=== PATIENT | male | born 1945 | race Caucasian/White ===

== ENCOUNTER 2017-03-15 01:50 | Inpatient (IN) | payer OTHER, MEDICARE ==
[~2017-03-15] VITALS: Ht 175.3 cm; Wt 117.9 kg
[~2017-03-15 01:50] MED LIST: ALLOPURINOL300 M1 PO; ASPIRIN EC81 M1 PO; FLOMAX0.4 M1 PO; JANUMET XR 1001 EACH PO; LOTREL 5-20 MG1 EACH PO; PLAVIX75 M1 PO
--- NOTE | 2017-03-15 07:25 | Admission Core Measures ---
Admission Meds I reviewed the following Meds: Current Medications Sig/Nicko Start time Last Medication Dose Stop Time Status Admin Acetaminophen 975 MG ONCE 03/15 0000 NR (Tylenol) 03/15 2359 Cefazolin Sodium 2,000 MG ONCE 03/15 0000 NR (Kefzol-Ancef Inj) 03/15 2359 Oxycodone HCl 10 MG ONCE 03/15 0000 NR (Roxicodone) 03/15 2359 Acute Coronary Syndrome Inclusion Criteria ACS Diagnosis No Inpatient Core Measures LDL Reminder: If No, please order W/I first 24hr of stay Congestive Heart Failure Inclusion Criteria CHF Diagnosis No Cerebrovascular accident Inclusion Criteria CVA/TIA Diagnosis No Inpatient Core Measures Bedside Swallow Eval Reminder: If BSE failed, place ST order Antithrombotic Reminder: Order Antithrombotic Medication by end of day 2 Antithrombotic Reminder: Document Reason Antithrombotic Not ordered by end of day 2 AFIB/Flutter Reminder: If Present, add to problem list AFIB/Flutter Reminder: Order Anticoag Medication for pts with AFIB/Flutter Atherosclerosis Reminder: If Present, add to problem list LDL Reminder: If No, please order W/I first 24hr of stay PT Order Reminder: If No, please order Venous thromboembolism Inpatient Core Measures VTE Risk Factors: [facility] prophylaxis d/t No contraindications No VTE Pharm Prophylaxis d/t No contraindications Inclusion Criteria - Per Current guidelines, there needs to be overlap - treatment for the first 5 days of Warfarin therapy. - Parenteral Anticoagulation (IV or SC) needs to be - given along with Warfarin therapy. VTE Diagnosis No VTE Type NONE VTE Confirmed by (Test) NONE Problem List As ranked by this Provider includes Assessment & Plan 1. Primary osteoarthritis of right hip HOME MEDS Home Med List Allopurinol 300 MG TABLET 1 TAB PO DAILY gout (Reported) Amlodipine Besylate/Benazepril (Lotrel 5-20 MG Capsule) 5 MG-20 MG CAPSULE 1 CAP PO DAILY htn (Reported) Aspirin (Ecotrin*) 81 MG TABLET.DR 1 TAB PO DAILY PROPHO (Reported) Clopidogrel Bisulfate (Plavix) 75 MG TABLET 1 TAB PO DAILY HX CVA (Reported) Sitagliptin Phos/Metformin HCl (Janumet XR 100-1,000 MG Tablet) 100 MG-1,000 MG TBMP.24HR 1 TAB PO DAILY DM II (Reported) Tamsulosin HCl (Flomax) 0.4 MG CAP.ER.24H 1 CAP PO DAILY bph (Reported)
[2017-03-15] MEDS ORDERED: MIRALAX17 G1 PO (11:09)
[2017-03-15] MEDS ORDERED: COLACE100 M1 PO (11:09)
[2017-03-15] MEDS ORDERED: MS CONTIN30 M1 PO (11:09)
[2017-03-15] MEDS ORDERED: DILAUDID2 M1 PO (11:09)
[2017-03-15] MEDS ORDERED: ASPIRIN EC325 M2 PO (11:09)
[2017-03-15] MEDS ORDERED: PROTONIX20 M1 PO (11:09)
--- NOTE | 2017-03-15 11:13 | Patient Discharge Instructions ---
Discharge Instructions General Discharge Information You were seen/treated for: RIGHT hip pain You had these procedures: Total hip replacement, RIGHT Watch for these problems: Increasing pain despite the use of pain medication Increasing redness, warmth or swelling Drainage of any type from incision Inability to bear weight on operative leg Persistent nausea and vomiting Fever greater than 101.5 degrees No bath, but you may shower: Yes Other wound care: Please keep wound clean and dry. No ointments or lotions of any type on or near incision at any time. No exceptions. Your dressing will be changed by your nurse on the second day after your surgery. Daily dry dressing changes are recommended each day thereafter. Do not soak your wound in a bath at any time until otherwise indicated by Dr. Francisco. You may shower, please dry wound immediately after shower with a clean towel. Special Instructions: DO NOT TAKE PLAVIX FOR 2 WEEKS DUE TO RISK OF BLEEDING. You may resume your normal dose of Plavix 2 weeks from surgery. Aspirin: You are taking this medication to help prevent blood clot formation. Please take with food to protect your stomach lining. Please take Aspirin 325mg twice daily, INSTEAD OF YOUR HOME DOSE OF 81mg daily. Protonix: Take this daily to protect your stomach lining while taking aspirin. Constipation: Pain medication can cause constipation. Dr. Francisco has recommended that you take Colace and miralax each day. You may discontinue this medication if you develop loose stool or diarrhea. If you wish to continue this medication, it is available over the counter. If you are unable to move your bowels after several days, if you are unable to pass gas and are developing bloating, nausea, or vomiting as a result, please contact your doctor. Diet Continue normal diet: Yes Recommended Diet: Diabetic Activity Activity Limited to: Weight bear as tolerated Other activity limits: use assistive devices as needed Acute Coronary Syndrome Inclusion Criteria At DC or during hospital stay patient has or had the following: ACS DIAGNOSIS No Discharge Core Measures Meds if any: Prescribed or Continued at Discharge Meds if any: NOT Prescribed or Continued at Discharge Congestive Heart Failure Inclusion Criteria At DC or during hospital stay patient has or had the following: CHF DIAGNOSIS No Discharge Core Measures Meds if any: Prescribed or Continued at Discharge Meds if any: NOT Prescribed or Continued at Discharge Cerebrovascular accident Inclusion Criteria At DC or during hospital stay patient has or had the following: CVA/TIA Diagnosis No Discharge Core Measures Meds if any: Prescribed or Continued at Discharge Meds if any: NOT Prescribed or Continued at Discharge Venous thromboembolism Inclusion Criteria VTE Diagnosis No VTE Type NONE VTE Confirmed by (Test) NONE Discharge Core Measures - Per Current guidelines, there needs to be overlap - treatment for the first 5 days of Warfarin therapy. - If discharged on Warfarin prior to 5 days of - overlap therapy, the patient will need to be - assessed for post discharge needs including - *Post discharge parental anticoagulation - *Warfarin and/or parental anticoagulation education - *Follow up date to check INR post discharge At least 5 days overlap therapy as Inpatient No Meds if any: Prescribed or Continued at Discharge Note: Overlap Therapy is Warfarin and Anticoagulant Meds if any: NOT Prescribed or Continued at Discharge
--- NOTE | 2017-03-15 11:17 | Surg Short-stay <48hrs Dis Sum ---
See Addendum Visit Information Visit Dates Admission Date: 03/15/17 Discharge Date: 03/20/17 Surgical Short Stay DC Summary Admission Diagnosis: Primary unilateral osteoarthritis, right hip Final Diagnosis: Same, s/p total hip replacement, right Procedure(s): total hip replacement, right Summary/Significant Findings: Patient was admitted to the hospital for an elective total joint replacement. The procedure was tolerated well and patient was transferred to a general surgical floor. Diet was advanced and tolerated, and the patient voided spontaneously. The patient was evaluated and treated by physical therapy. His postoperative course was somewhat delayed due to reports of significant pain. MS Contin was added to his regimen, which helped. 4 mg of Dilaudid seemed to work for intermittent use. He and his were uncomfortable with discharge home as they felt he would not be safe there. The patient required a few more days for pain control and continued PT/mobility. At the time of hospital discharge, the vital signs were stable, neurovascular status was intact, and pain was controlled with the use of oral pain medications. He should remain off of his Plavix for 2 weeks postop. Condition at Discharge: stable Discharge Disposition: home health services Discharge instructions provided to patient/family: Yes Post discharge follow-up plan: Follow up with Dr. Francisco in 6 weeks from date of surgery. Please call his office to arrange and/or confirm this appointment.
--- NOTE | 2017-03-15 14:30 | RADIOLOGY REPORT ---
EXAMINATION: XR HIP, RIGHT CLINICAL INFORMATION: Status post total hip arthroplasty. COMPARISON: None TECHNIQUE: Two views of the right hip. Crosstable lateral view is somewhat limited due to technique and patient body habitus. FINDINGS: Immediate postoperative changes consistent with total hip arthroplasty include metallic acetabular, femoral head, and proximal femoral components without evidence of immediate consultation. IMPRESSION: Postoperative changes.
--- NOTE | 2017-03-15 16:58 | PN- Student ---
GUILLERMINA CORNEJO 03/15/17 1646: Subjective Subjective: POC: Patient is sitting up in chair. Reports 6/10 pain in right hip currently. Patient reports some residual tingling in right leg. Just given IV morphine. No other complaints. Denies n/v, SOB, chest pain, headaches/dizziness. Objective Objective: Vital signs stable General: awake, alert, oriented, NAD Lungs: CTAB, no wheeze/rhonchi/rales Heart: S1 S2, RRR Abdomen: soft, obese, non-distended, normoactive bowel sounds Extremities: ALPS in place, moves all extremities, gross motor/sensory function in tact, no peripheral edema, distal pulses 2+ Right hip: incision site dressing lightly stained with sanguanous fluid, but dry and intact. Hemovac in place with about 300 cc sanguanous drainage Assessment/Plan Assessment: 71 y/o male POD #0 right hemiarthroplasty for osteoarthritis of hip. Progressing as expected with 6/10 post-op pain that is well controlled with morphine IV. Plan: Diet: regular aat Pain: continue current pain management Abx: ancef x2 for prophylaxis DVT ppx: ALPS, aspirin 325 bid GI ppx Sliding scale accuchecks ac tid PT: OOB and ambulate with physical therapy Due to void post-op by midnight Monitor drain output - consider D/C tomorrow am D/C planning - pending clearance by PT w/d with attending FILOMENA PEREZ 03/15/17 5431: Assessment/Plan Plan: agree with above PA-S note likely d/c hemovac in the morning and stop iv fluids will d/w
--- NOTE | 2017-03-15 17:46 | Operative Report ---
Operative/Inv Procedure Report Surgery Date: 03/15/17 Name of Procedure: Right total hip replacement Pre-Operative Diagnosis: Primary right hip DJD Post-Operative Diagnosis: Same Estimated Blood Loss: 500 Surgeon/Flap Maker: AMITA BENÍTEZ,FRANCIA Engel Anesthesia: block Operative/Procedure Note Note: Description of Procedure: The patient was taken to the operating room and positively identified. After induction of spinal anesthesia and administration of appropriate pre-operative antibiotics, the patient was positioned supine on the operating room table and all bony prominences were well padded. After performing a surgical timeout, the right lower extremity was prepped and draped in the usual sterile fashion. A direct anterior approach was made to the right hip. The incision was carried sharply through superficial soft tissues to the level of the fascia. Meticulous hemostasis was maintained with Bovie electocautery. The fascia over the tensor fascia berto muscle was opened sharply and the interval between the TFL and the sartorius was entered bluntly taking care to stay lateral to the lateral femoral cutaneous nerve. Retractors were placed around the femoral neck and the pericapsular fat was identified. The ascending branches of the lateral femoral circumflex vessels were identified and carefully coagulated. The pericapsular fat and anterior capsule were then resected. A napkin ring osteotomy was performed and the femoral head was removed without difficulty. Attention was then turned to the acetabulum. After appropriate placement of retractors, the acetabulum was exposed. Soft tissue was cleaned from the acetabular margin and notch. Overhanging osteophytes were removed and the teardrop was exposed. The acetabulum was then sequentially reamed to accept a 60 mm Jose Tritanium hemispherical solid back shell. This was impacted into place in the appropriate position and fitted with a 36 mm Trident X3 zero degree polyethylene insert. Attention was then turned to the femur. After performing the appropriate ligament releases, the proximal femur was exposed. It was then sequentially broached to accept a size 11 Clifton secure fit max 127 stem. This was trialed for leg length and stability. The trial component was removed and the final component was impacted into place. The trunnion was carefully cleaned and fit with a 36 mm, -5 Biolox delta ceramic femoral head. The hip was reduced and put through a full range of motion and found to be stable. The articular space was then irrigated with sterile saline. The periarticular soft tissues were infilitrated with Marcaine. The fascial layer was closed with interrupted #1 vicryl suture and the skin was re-approximated with interrupted 2 -0 vicryl. The skin was closed with a running 3-0 V-Lock suture. Steri-strips and a sterile dressing were applied. The patient was awakened and taken to the recovery room in satisfactory condition.
[2017-03-15 19:30] VITALS: BP 138/82
[2017-03-15 22:23] VITALS: BP 150/80
--- NOTE | 2017-03-16 00:44 | NUR ---
PATIENT ALERT AND ORIENTED X3, ARRIVED ON FLOOR FROM PACU. ASSESSMENT COMPLETE. RIGHT HIP DRESSING CLEAN AND INTACT. HEMOVAC DRAINING BLOODY DRAINAGE. PATIENT C/O PAIN TO RLE. PAIN MEDICTION GIVEN ORDERED. FAMILY AT BEDSIDE. PT ORIENTED TO ROOM, STAFF AND CALL LIGHT SYSTEM. WILL CONTINUE TO MONITOR.
[2017-03-16 06:00] VITALS: BP 146/84
--- NOTE | 2017-03-16 07:23 | PN- Student ---
See Addendum GUILLERMINA CORNEJO 03/16/17 0709: Subjective Subjective: Patient is sitting semi-erect in bed this am, comfortable with no current complaints. Is OOB to chair and standing to void since yesterday. Reports 5-6/10 pain in right hip when he gets up to use the bathroom, but resolves when he is laying down. Doesn't want to take pain medication unless planning to get out of bed. Tolerating regular diet well. Denies chest/abdominal pain, SOB, n/v, headaches and dizziness. Is requesting to stay in hospital another day. is concerned she will not be able to help him in and out of the house and up the stairs. Objective Objective: Vital Signs Result Date Time Pulse Ox 95 03/16 0600 B/P 146/84 03/16 0600 O2 Delivery Room Air 03/16 06 Temp 98.4 03/16 0600 Pulse 62 03/16 0600 Resp 20 03/16 0600 Intake & Output 03/16 0000 03/15 1600 03/15 0800 Intake Total 830 Output Total 1500 Balance -670 Intake, IV 350 Intake, Oral 480 Output, 700 Drainage Output, Urine 800 Patient 260 lb Weight General: awake, alert, oriented, NAD Lungs: CTAB, no wheeze/rales/rhonchi, good air movement bilaterally Heart: S1 S2, RRR, no MRG Abdomen: soft, obese, normoactive bowel sounds, non-tender Extremities: warm, gross motor/sensory function in tact, no peripheral edema, no calf tenderness bilaterally, distal pulses 2+ Right hip: dressing lightly stained with blood, dry and intact, hemovac in place currently with about 30cc serosanguanous drainage - accumulated 225cc overnight, some sedrick- incisional tenderness, no edema, erythema Assessment/Plan Assessment: 71 y/o male POD #1 right total hip replacement for osteoarthritis with PMH significant for DM, gout, HTN, CVA and BPH. Progressing as expected with pain on movement but none otherwise. Plan: Diet: continue regular diet Pain: continue current pain management regimen DVT ppx and GI ppx OOB and ambulate with PT today D/C hemovac AC TID PT to clear for discharge to home - w/d with attending about staying until Monday ONELIA CARDENAS 03/16/17 0833: Assessment/Plan Plan: Diabetic diet Bowel regimen: Miralax, Colace BID DVT prophylaxis/Anticoagulation: Aspirin 325mg BID Possible dc hemovac, will follow up with attending Continue home medications: Omeprazole, lisinopril, tamsulosin, amlodipine PT consultation pending, likely discharge home monday
[2017-03-16 09:05] LABS: ABSOLUTE BASOPHIL COUNT 0 /CUMM (0.0-0.2); ABSOLUTE EOSINOPHIL COUNT 0 /CUMM (0.0-0.7); ABSOLUTE GRANULOCYTE CT 8.5 /CUMM (1.4-6.5); ABSOLUTE LYMPH COUNT 2.4 /CUMM (1.2-3.4); ABSOLUTE MONOCYTE COUNT 0.9 /CUMM (0.10-0.60); BASOPHIL % 0.1 % (0.0-2.0); EOSINOPHIL % 0.1 % (0-5); GRANULOCYTE % 71.7 % (42.2-75.2); HEMATOCRIT 36.8 % (42-52); MEAN CORPUSCULAR HGB 30.4 PG (27.0-31.0); MEAN CORPUSCULAR HGB CONC 33.6 G/DL (33.0-37.0); MEAN CORPUSCULAR VOLUME 90.5 FL (80.0-94.0); MEAN PLATELET VOLUME 9.8 FL (7.4-10.4); PLATELET COUNT 169 /CUMM (130-400); RBC DISTRIBUTION WIDTH 14.7 % (11.5-14.5); RED BLOOD CELL CT 4.07 /CUMM (4.70-6.10); WHITE BLOOD CELL COUNT 11.8 /CUMM (4.8-10.8)
[2017-03-16 11:54] VITALS: BP 140/80
[2017-03-16 14:17] VITALS: BP 126/68
--- NOTE | 2017-03-16 14:48 | NUR ---
PATIENT WITH PAIN IN THE AM, MULTIPLE PAIN MEDICATIONS GIVEN, ICE APPLIED, PAIN FINALLY RELIEVED, CURRENTLY COMFORTABLE, PT AWARE OF WHEN PAIN MEDICATIONS ARE DUE. SAFETY MAINTAINED
[2017-03-16 18:10] VITALS: BP 130/60
[2017-03-16 22:38] VITALS: BP 132/60
--- NOTE | 2017-03-16 22:59 | NUR ---
LATE ENTRY: PT STATED FEELING OF "PINS AND NEEDLES" TO BILATERAL FEET, THAT "JUST STARTED RIGHT NOW" -APPROX 1800. STATED THAT HES HAD THIS IN THE PAST BEFORE SURGERY WELL. +PEDAL PULSES, + POST TIB PULSES, NO INCREASE IN EDEMA. CALL TO SURGICAL PA TO MAKE AWARE, WHO STATED SHE WILL BE UP TO SEE PT BUT NO NEW ORDERS AT THIS TIME.
--- NOTE | 2017-03-16 23:01 | NUR ---
SHIFT NOTE: PT A/O X 3 ON RA, LUNGS CLEAR, IST AT BEDSIDE, NOT PASSING FLATUS YET, +BS X 4, TOLERATING FOOD AND PO FLUIDS WELL, NO NAUSEA. ABD SLIGHTLY DISTENDED, SOFT. A X 1 WITH RW. DRESSING TO RT HIP CD+I. MEDICATED WITH PAIN MEDS PRN PER EMAR. PT STATING "PHYSICAL THERAPY SHOULD HAVE BEEN WORKING WITH ME MORE, THEY SHOULD HAVE DONE STAIRS WITH ME TODAY. HE SAID HE WAS GOING TO COME BACK THIS AFTERNOON AND I HAVENT SEEN HIM". UPSET REGARDING THIS WELL. WILL PASS ALONG IN NURSE REPORT. PT STATES THAT HE HAS ABOUT 15 STAIRS AT HOME AND IS WORRIED ABOUT HAVING TO DO THE STAIRS AT HOME. EMOTIONAL SUPPORT PROVIDED.
[2017-03-17 06:51] VITALS: BP 122/74
--- NOTE | 2017-03-17 09:04 | PN- Orthopedic ---
Subjective Subjective: Moderate pain this morning, pain medication is helping. He states he is having a difficult time ambulating to the bathroom and does not feel comfortable being discharged home today. He denies any fever or flulike illness. He has a lot of stiffness and the like and right hip. Denies spasm Objective Vital Signs and I&Os Vital Signs Date Time Temp Pulse Resp B/P B/P Pulse O2 O2 Flow FiO2 Mean Ox Delivery Rate 03/17 0651 99.6 92 20 122/74 93 Room Air 03/16 2238 98.2 84 20 132/60 95 Room Air 03/16 1810 98.8 90 20 130/60 95 Room Air 03/16 1417 98.2 76 20 126/68 94 03/16 1316 Room Air Room Air 03/16 1154 98.7 80 20 140/80 96 03/16 1024 82 150/80 03/16 1023 82 150/80 03/16 1023 82 150/80 Intake & Output 03/17 1600 03/17 0800 03/17 0000 03/16 1600 03/16 0800 03/16 0000 Intake Total 450 830 Output Total 448 281 7751 Balance -150 -975 -670 Intake, IV 350 Intake, Oral 450 480 Output, 225 700 Drainage Output, Urine 600 750 800 Patient 260 lb Weight Physical Exam: Well-developed well-nourished no apparent distress. HEENT: Atraumatic, extraocular motion intact Neck: Supple, no lymphadenopathy Respiratory: No respiratory distress Extremities: No edema RIGHT lower extremity hip dressing in place, Dressing clean dry and intact with minimal bloody staining Incision without erythema Mild thigh edema No signs of infection. No shortening or rotation Hip range of motion is limited and without unexpected pain Neurovascularly intact distally Bilateral calves are supple, nontender. Neuro: Alert and oriented x3 Psych: Mood affect normal, normal memory normal judgment. Skin: Warm and dry, no rash on exposed skin Results Last 48 Hours of Labs: Laboratory Tests 03/16 0800 Chemistry Sodium (137 - 145 mmol/L) 139 Potassium (3.5 - 5.1 mmol/L) 4.7 Chloride (98 - 107 mmol/L) 101 Carbon Dioxide (22 - 30 mmol/L) 25 Anion Gap (5 - 16) 12 BUN (9 - 20 mg/dL) 15 Creatinine (0.7 - 1.2 mg/dL) 0.8 Estimated GFR (>60 ml/min) > 60 BUN/Creatinine Ratio (7 - 25 %) 18.8 Hematology CBC w Diff NO MAN DIFF REQ WBC (4.8 - 10.8 /CUMM) 11.8 H RBC (4.70 - 6.10 /CUMM) 4.07 L Hgb (14.0 - 18.0 G/DL) 12.4 L Hct (42 - 52 %) 36.8 L MCV (80.0 - 94.0 FL) 90.5 MCH (27.0 - 31.0 PG) 30.4 RDW (11.5 - 14.5 %) 14.7 H Plt Count (130 - 400 /CUMM) 169 MPV (7.4 - 10.4 FL) 9.8 Gran % (42.2 - 75.2 %) 71.7 Lymphocytes % (20.5 - 51.1 %) 20.4 L Monocytes % (1.7 - 9.3 %) 7.7 Eosinophils % (0 - 5 %) 0.1 Basophils % (0.0 - 2.0 %) 0.1 Absolute Granulocytes (1.4 - 6.5 /CUMM) 8.5 H Absolute Lymphocytes (1.2 - 3.4 /CUMM) 2.4 Absolute Monocytes (0.10 - 0.60 /CUMM) 0.9 H Absolute Eosinophils (0.0 - 0.7 /CUMM) 0 Absolute Basophils (0.0 - 0.2 /CUMM) 0 PUBS MCHC (33.0 - 37.0 G/DL) 33.6 Assessment/Plan Assessment/Plan Postop day #2 status post right total hip arthroplasty anterior approach Pain medication as needed Aspirin for DVT prophylaxis, hold Plavix until 2 weeks post Out of bed with physical therapy, requires stair training as well prior to discharge Monitor until tomorrow, home with services versus ECF Core Measures/Miscellaneous Venous Thromboembolism VTE Risk Factors: Age > 40, Surgery VTE Contraindications: No Contraindications VTE Diagnosis: No VTE Type: NONE VTE Confirmed by (Test): NONE Beta Cherelle Is Beta Cherelle a Home Med? No Antibiotics Is Patient on Antibiotics? No
[2017-03-17 14:23] VITALS: BP 125/72
[2017-03-17 22:50] VITALS: BP 130/78
[2017-03-18 06:44] VITALS: BP 140/82
--- NOTE | 2017-03-18 09:12 | PN- Orthopedic ---
See Addendum Subjective Subjective: Initially this morning, patient had no major complaints and stated that pain was well controlled, although he was sitting still in the chair at the time. Physical therapy was attempted and patient was unable to stand due to his pain levels. He was recently medicated with Toradol and 2 mg of oral Dilaudid. He is otherwise voiding, tolerating a diet, and without major complaints. Neuropathy symptoms are unchanged versus 2 days ago. Still awaiting bowel movement, but he feels the urge. Objective Vital Signs and I&Os Vital Signs Date Time Temp Pulse Resp B/P B/P Pulse O2 O2 Flow FiO2 Mean Ox Delivery Rate 03/18 0644 99.6 96 18 140/82 92 Nasal 3.0L Cannula 03/17 2250 100.2 98 20 130/78 92 Room Air 03/17 1423 98.2 77 20 125/72 96 03/17 1056 101 108/60 03/17 1056 101 108/60 Intake & Output 03/18 1600 03/18 0800 03/18 0000 03/17 1600 03/17 0800 03/17 0000 Intake Total 780 1100 Output Total 501 Balance 780 599 Intake, IV 30 Intake, Oral 750 1100 Output, Urine 501 Physical Exam: Gen.: Patient is awake and alert. No acute distress, until he attempts at movement, at which point he appears to be writhing in pain. Cardiac: Regular Pulmonary: Lungs are cut auscultation bilaterally. Extremities: The right hip dressing is clean, dry, and intact. It was replaced. There is moderate thigh swelling, within expected limits. No ecchymosis, erythema, drainage, or evidence of infection. No calf tenderness bilaterally. Strength of dorsiflexion and plantar flexion 4-5. Lower extremity sensation is intact. Assessment/Plan Assessment/Plan Patient is a 71-year-old male with a history of diabetes, gout, hypertension, CVA (on Plavix at home), and BPH, who is now postoperative day #3 status post right total hip replacement. Plan: -We will attempt improved pain control by giving an additional 2 mg of Dilaudid now as well as dosing the MS Contin an hour early. Toradol is also being used for pain control. -PT will reattempt his session if adequate pain control is achieved. -Patient feels the urge to have a bowel movement, so we don't need to be more aggressive with his bowel regimen. -DVT prophylaxis with aspirin twice a day and Alps. -Plan for discharge today or tomorrow depending on PT assessment for safety at home. Core Measures/Miscellaneous Venous Thromboembolism VTE Risk Factors: Age > 40, Surgery VTE Contraindications: No Contraindications VTE Diagnosis: No VTE Type: NONE VTE Confirmed by (Test): NONE Beta Cherelle Is Beta Cherelle a Home Med? No Antibiotics Is Patient on Antibiotics? No
[2017-03-18 14:30] VITALS: BP 130/78
--- NOTE | 2017-03-18 16:14 | NUR ---
PT SLEPT THROUGH NOON TO ONE OCLOCK. STATED PAIN MANAGEABLE AT THAT TIME. CHECKED ON PT AT 2PM, PT STATED HE WAS COMFORTABLE IN CHAIR, INCREASED PAIN WITH MOVEMENT BUT WAS NOT MOVING. PT TOLD HIS PAIN MEDICATION WAS AVAILABLE TO HIM AT ANYTIME AND HE VERBALIZED THAT HE UNDERSTOOD AND WOULD TAKE MEDICATION WHEN NEEDED. UPON SHIFT CHANGE AND BEDSIDE REPORT, PAIN ASSESSED AND PT DID NOT REQUEST PAIN MEDICATION. VOCALIZED WANTING TO WALK THIS EVENING AND TOLD TO CALL WHEN READY. AFTER COMPLETING REPORT, PT WAS AMBULATING IN HALLWAY WITH RW. SON AT SIDE. AFTER COMPLETING WALK, PT STATED HE WAS UPSET WITH PAIN LEVEL AND WANTED PAIN MEDICATION. ICE PLACED TO R HIP, PAIN MED GIVEN BY EVENING RN. PT RETURNED TO BED TO REST.
[2017-03-18 22:18] VITALS: BP 132/70
[2017-03-19 06:34] VITALS: BP 120/66
--- NOTE | 2017-03-19 08:24 | PN- Orthopedic ---
See Addendum Subjective Subjective: No acute events overnight. Patient reports improved pain control and is looking forward to his PT sessions morning. He is otherwise eating well and voiding. No BM as of yet, but he is passing flatus and states that he feels like he will have a BM soon. Otherwise denies headache, dizziness, chest pain, shortness of breath. Objective Vital Signs and I&Os Vital Signs Date Time Temp Pulse Resp B/P B/P Pulse O2 O2 Flow FiO2 Mean Ox Delivery Rate 03/19 0634 97.9 86 18 120/66 92 Room Air 03/18 2218 99.1 87 20 132/70 91 Room Air 03/18 1430 99.0 87 20 130/78 96 03/18 0915 94 116/62 03/18 0915 94 116/62 03/18 0915 94 116/62 Intake & Output 03/19 1600 03/19 0800 03/19 0000 03/18 1600 03/18 0800 03/18 0000 Intake Total 100 800 480 780 Output Total Balance 100 800 480 780 Intake, IV 0 30 Intake, Oral 100 800 480 750 Number 0 Bowel Movements Physical Exam: Gen.: Patient is awake and alert. No acute distress. Appears much more comfortable than yesterday. Cardiac: Regular Pulmonary: Lungs are cut auscultation bilaterally. Extremities: The right hip dressing is clean, dry, and intact. It was replaced. There is mild thigh swelling, within expected limits. No ecchymosis, erythema, drainage, or evidence of infection. No calf tenderness bilaterally. Strength of dorsiflexion and plantar flexion 4-5. Lower extremity sensation is intact. Assessment/Plan Assessment/Plan Patient is a 71-year-old male with a history of diabetes, gout, hypertension, CVA (on Plavix at home), and BPH, who is now postoperative day #4 status post right total hip replacement. Discharge was held yesterday due to inadequate pain control and slightly regression of activity due to this complaint. Plan: -Continue MS Contin twice a day and oral Dilaudid as needed for pain. -PT will reattempt his session if adequate pain control is achieved. -Patient feels the urge to have a bowel movement, so we don't need to be more aggressive with his bowel regimen. -DVT prophylaxis with aspirin twice a day and Alps. -Plan for discharge to home today with home PT and nursing care. Core Measures/Miscellaneous Venous Thromboembolism VTE Risk Factors: Age > 40, Surgery VTE Contraindications: No Contraindications VTE Diagnosis: No VTE Type: NONE VTE Confirmed by (Test): NONE Beta Cherelle Is Beta Cherelle a Home Med? No Antibiotics Is Patient on Antibiotics? No
[2017-03-19] MEDS ORDERED: MS CONTIN30 M1 PO (11:10)
[2017-03-19 14:46] VITALS: BP 128/62
[2017-03-19 22:18] VITALS: BP 124/60
[2017-03-20 06:36] VITALS: BP 130/80
--- NOTE | 2017-03-20 08:22 | PN- Orthopedic ---
Subjective Subjective: No acute overnight events reported. Pain is waxing and waning but improved with long acting pain control. Denies chest pain, shortess of breath and difficulty breathing. Denies nause and vomitting. Has moved his bowels. Objective Vital Signs and I&Os Vital Signs Date Time Temp Pulse Resp B/P B/P Pulse O2 O2 Flow FiO2 Mean Ox Delivery Rate 03/20 0636 98.4 84 20 130/80 93 Room Air 03/19 2218 99.3 98 20 124/60 96 Room Air 03/19 1446 99.0 91 20 128/62 95 /16 0923 130/74 03/19 0923 130/74 Intake & Output 03/20 1600 03/20 0800 03/20 0000 03/19 1600 03/19 0800 03/19 0000 Intake Total 240 1510 800 100 800 Output Total Balance 240 1510 800 100 800 Intake, IV 10 Intake, Oral 240 1500 800 100 800 Number 2 Bowel Movements Physical Exam: General: Alert and oriented x3. no acute distress Cardiac: RRR, s1s2 Pulm: CTA bilaterally ABD: Non-tender, non-distended Extremities: Moves all extremities, distal sensation intact, skin warm and well perfused. Thigh compartment soft, dressing dry and intact, bilateral calves soft and non-tender Assessment/Plan Assessment/Plan This is a 71 year old male, POD 5 s/p r thr -Continue current pain regimen -ASA 325 bid for dvt ppx. restart plavix on POD 14 -OOB, wbat -Continue diet as tolerated -Plan for discharge to [facility] today, will d/w case mgmt -Will d/w Dr. Francisco Core Measures/Miscellaneous Venous Thromboembolism VTE Risk Factors: Age > 40, Surgery VTE Contraindications: No Contraindications VTE Diagnosis: No VTE Type: NONE VTE Confirmed by (Test): NONE Beta Cherelle Is Beta Cherelle a Home Med? No Antibiotics Is Patient on Antibiotics? No
--- NOTE | 2017-03-20 12:16 | NUR ---
PT SEEN BY BRAULIO THIS AM AND CLEARED FOR DC TO HOME. AT BEDSIDE REQUESTING TO SPEAK WITH BRAULIO BENÍTEZ, [employer] SALESPERSON. [employer] SALESPERSON SPOKE WITH PT AND REGARDING PROCESS OF DECISION MAKING FOR DC PLAN. EXPLAINED PT CLEARED BY PHYSICAL THERAPY. WHEN CALLED BRAULIO BOWMAN STATED THE PT WAS ALREADY SEEN AND CLEARED AND DOES NOT NEED TO SEE PT. [employer] SALESPERSON EDUCATED AND ON OPTION TO DISPUTE DC. AND PT WOULD LIKE TO DISPUTE, DOCUMENT SIGNED. PT'S SON IS AN SOFTWARE SUPPORT REPRESENTATIVE AND WILL BE COMING TO DISCUSS OPTIONS AND HOW TO GET PT TO REHAB OR MORE CLOSELY MONITORED CARE. PHYSICAL THERAPY CAME TO BEDSIDE AND PERFORMED SECOND EVALUATION. PT AMBULATED IN HALLWAY WITH RW AND ABLE TO COMPLETE STAIRS. HOWEVER, PT UNABLE TO STAND FROM ARMCHAIR WITHOUT AX2. PT STATES HE HAS AN ARMCHAIR AT HOME WITHOUT ARMRESTS AND WILL NOT BE ABLE TO GET UP AT HOME. [employer] SALESPERSON MADE AWARE AND IS CURRENTLY SEARCHING FOR BED AT REHAB FACILITY. PT STATES PAIN TOLERABLE AFTER WALKING. NO S/S OF DISTRESS, VERBALIZES COMFORT IN CHAIR. DRSG TO R HIP CHANGES AND ANN STOCKINGS PLACED.
[2017-03-20 14:44] VITALS: BP 140/84
== END 2017-03-20 15:00 | DRG 470 ==
LOC: DELPENDDIS → EDBD 01:50 → SDA 01:50 → 2NA 01:50 → SDA 07:00 → ENRESERV 14:42 → ENTRNSPT 15:28 → CMPTRNSPT 15:58 → 2NA 16:03 → ENPENDDIS 03-19 10:17 → 2NA 03-20 15:00
PROVIDERS: Physician Assistant Surgical; ADMIT Orthopaedic Surgery
PROC: 0SR904A Replacement of Right Hip Joint with Ceramic on Polyethylene Synthetic Substitute, Uncemented, Open Approach (ICD-10-PCS; principal; 2017-03-15)
DX: M16.11 Unilateral primary osteoarthritis, right hip (principal); E11.9 Type 2 diabetes mellitus without complications; I10 Essential (primary) hypertension; M10.9 Gout, unspecified; G47.33 Obstructive sleep apnea (adult) (pediatric); N40.0 Benign prostatic hyperplasia without lower urinary tract symptoms; Z86.73 Personal history of transient ischemic attack (TIA), and cerebral infarction without residual deficits
CPT/HCPCS: 2NAP; 73502-RT; 82436; 97110-GO; 97116-GO; 97161-GP; 97530-GO; J0690; J0735; J1885; J2405; J2550; J7042